=== PATIENT | male | born 2000 | race Caucasian/White ===

== ENCOUNTER 2020-09-06 18:23 | Emergency (ER) | payer OTHER ==
[2020-09-06 18:45] VITALS: BP 137/80
--- NOTE | 2020-09-06 18:46 | ED Physician Documentation ---
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 Both of the pain is in the left elbow. But also has some pain at the base of the right thumb.) Review of Systems Constitutional: reports: Reviewed and negative Eyes: reports: Reviewed and negative Ears: reports: Reviewed and negative Nose: reports: Reviewed and negative Throat: reports: Reviewed and negative Cardiac: reports: Reviewed and negative PD PAST MEDICAL HISTORY - Present Medications Home Medications: Ambulatory Orders Medication Instructions Recorded Confirmed No Known Home Medications 09/06/20 09/06/20 - Allergies Allergies/Adverse Reactions: Allergies Allergy/AdvReac Type Severity Reaction Status Date / Time No Known Drug Allergies Allergy Verified 09/06/20 18:27 PD ED PE NORMAL - Vitals Vital signs reviewed: Yes - General General: Alert and oriented X 3, No acute distress - HEENT HEENT: PERRL, EOMI, Other (Diffuse tenderness and swelling about the left elbow with some abrasion. Nothing to deep. He has an abrasion superolateral to the left orbit.) - Neck Neck: Supple, no meningeal sign, No bony TTP - Extremities Extremities: Other (V mild snuffbox tenderness on the right) - Neuro Neuro: Alert and oriented X 3, No motor deficit, No sensory deficit, Normal speech - Psych Psych: Normal mood, Normal affect Results - Vitals Vitals: Vital Signs - 24 hr 09/06/20 18:44 Heart Rate 68 Respiratory 16 Rate Blood Pressure 137/80 H O2 Saturation 99 Oxygen O2 Source Room air - Rads (name of study) R wrist and L elbow Radiology: EMP read contemporaneously (Right wrist is negative, left elbow has a joint effusion.) PD MEDICAL DECISION MAKING - ED course ED course: I am fairly unimpressed by the right wrist exam, do not think he has an occult scaphoid fracture given the level tenderness he has. That said I am more concerned about the elbow, and given the joint effusion close follow-up and repeat x-rays were advised. Departure - Departure Disposition: 01 Home, Self Care Clinical Impression: Effusion of elbow joint, left Wrist injury Qualifiers: Encounter type: initial encounter Laterality: right Qualified Code(s): S69.91XA - Unspecified injury of right wrist, hand and finger(s), initial encounter Condition: Stable Record reviewed to determine appropriate education?: Yes Instructions: ED Sprain Hand, ED Sprain Elbow Comments: As discussed, x-ray of the right wrist is normal but the x-ray of the left wrist shows what is called an effusion. This is fluid in the joints. It is concerning that you might have a hairline fracture that is unable to be seen today. Follow-up with the [facility], you should probably have repeat x-rays in about a week to ensure there is no occult fracture. There are 2 excellent orthopedic surgeons on [facility] right now, Dr. Cambpell and Dr. LEARY. Take the copy of the x-rays from today on CD with you to that visit. Tylenol or ibuprofen as needed for pain. Forms: Activity restrictions
--- NOTE | 2020-09-06 19:15 | XRAY Report ---
PROCEDURE: Wrist 4 View RT INDICATIONS: wrist inj TECHNIQUE: 4 views of the wrist were acquired. COMPARISON: None FINDINGS: Bones: No fractures or dislocations. No suspicious bony lesions. Scaphoid view: Negative Soft tissues: No suspicious soft tissue calcifications. IMPRESSION: No acute fracture. No osseous lesion. If symptoms and/or clinical suspicion for pathology continue, f urther assessment with repeat plain films, or advanced imaging (e.g., CT, MRI, or bone scan) is recom mended for further assessment. Reviewed by: Burke Holder MD on 09/06/2020 7:14 PM PDT Approved by: Burke Holder MD on 09/06/2020 7:14 PM PDT Station ID: [id number]
--- NOTE | 2020-09-06 19:16 | XRAY Report ---
PROCEDURE: Elbow 3 View LT INDICATIONS: elbow inj TECHNIQUE: 3 views of the elbow were acquired. COMPARISON: None FINDINGS: Bones: No fractures or dislocations. No suspicious bony lesions. Soft tissues: There is then elbow joint effusion. No suspicious soft tissue calcifications. IMPRESSION: No displaced fracture is seen. However, there is an elbow joint effusion which may indicate an occult nondisplaced fracture. Close clinical follow-up is recommended with repeat, or advanced imaging, as clinically warranted. Reviewed by: Burke Holder MD on 09/06/2020 7:15 PM PDT Approved by: Burke Holder MD on 09/06/2020 7:15 PM PDT Station ID: [id number]
== END 2020-09-06 19:48 | disposition home or self-care (01) ==
LOC: ED 18:23
DX: M25.422 Effusion, left elbow (principal); S69.91XA Unspecified injury of right wrist, hand and finger(s), initial encounter; V00.131A Fall from skateboard, initial encounter; Y99.8 Other external cause status
CPT/HCPCS: 99282; 99284